=== PATIENT | female | born 1960 | race Caucasian/White ===

== ENCOUNTER 2016-10-19 14:42 | Emergency (ER) | payer OTHER ==
[~2016-10-19] VITALS: Ht 152.4 cm; Wt 86.8 kg
[~2016-10-19 14:42] MED LIST: ACET-2123 PO; AMIT10TA6 PO; BACL10TA PO; CLOT15C TP; DICL2100G TP; GLIP10 PO; HYDR25TA PO; HYDR25TA84 PO; KETO5DRO3 OU; LINA5TAB PO; LOSA50TA37 PO; MECL12.585 PO; MELO-273 PO; METF500T4 PO; METO50 PO; METO5TAB95 PO; NIZO215C TP; OMEP20 PO; PRAV20TA4 PO; PSYL660P17 PO; RANI150T7 PO; SUMA25TA9 PO
[2016-10-19 15:22] LABS: GLUCOSE,POINT OF CARE 129 MG/DL (70-110)
[2016-10-19 16:04] LABS: BASOPHILS # (AUTO) 0.06 K/uL (0.00-0.20); BASOPHILS % (AUTO) 0.6 % (0.0-2.0); EOSINOPHILS # (AUTO) 0.18 K/uL (0.00-0.70); EOSINOPHILS % (AUTO) 1.99 % (1.0-6.0); HEMATOCRIT 39.5 % (36-46); HEMOGLOBIN 13.4 g/dL (12.0-16.0); LYMPHOCYTES # (AUTO) 3.7 K/uL (1.0-4.8); LYMPHOCYTES % (AUTO) 39.8 % (22.0-44.0); MEAN CORPUSCULAR HEMOGLOBIN 30.4 pg (26.0-34.0); MEAN CORPUSCULAR HGB CONC 33.9 G/dL (31.0-37.0); MEAN CORPUSCULAR VOLUME 90 fL (80-100); MONOCYTES # (AUTO) 0.4 K/uL (0.1-1.0); MONOCYTES % (AUTO) 4.6 % (2.0-9.0); NEUTROPHILS # (AUTO) 4.9 K/uL (1.8-7.7); PLATELET COUNT (AUTO) 305 K/uL (150-450); RED BLOOD CELL COUNT(AUTO) 4.41 MIL/uL (4.00-5.20); RED CELL DISTRIBUTION WIDTH 13.7 % (11.5-14.5); WHITE BLOOD COUNT (AUTO) 9.3 K/uL (4.5-11.0)
[2016-10-19 16:15] LABS: CALCIUM, TOTAL 8.5 mg/dL (8.8-10.5); CREATININE 1.01 mg/dL (0.60-1.30); POTASSIUM 4.2 mmol/L (3.5-5.1)
[2016-10-19 16:20] LABS: ALBUMIN 3.9 g/dL (3.4-5.0); BILIRUBIN,TOTAL 0.2 mg/dL (0.1-1.0); TOTAL PROTEIN, SERUM 7.7 g/dL (6.4-8.2)
[2016-10-19 16:30] LABS: PROTHROMBIN TIME 10.4 SEC (9.4-11.6)
[2016-10-19] MEDS ORDERED: METOCLOPRAMIDE HCL 5 MG/ML 2 ML VIAL IVP ONE (16:30)
[2016-10-19] MEDS ORDERED: DiphenhydrAMINE HCL 50 MG/ML VIAL IVP ONE (16:30)
[2016-10-19] MEDS ORDERED: HYDR25TA84 PO (16:31)
[2016-10-19] MEDS ORDERED: TOPI100 PO (16:31)
[2016-10-19] MEDS ORDERED: ALBU8HFA4 IH (16:31)
[2016-10-19] MEDS ORDERED: CYAN250014 SL (16:31)
[2016-10-19] MEDS ORDERED: THIA100 PO (16:31)
[2016-10-19] MEDS ORDERED: VARE1TAB22 PO (16:31)
[2016-10-19] MEDS ORDERED: LINA5TAB PO (16:31)
[2016-10-19] MEDS ORDERED: PYRI100T2 PO (16:31)
[2016-10-19] MEDS ORDERED: GABA-531 PO (16:31)
[2016-10-19] MEDS ORDERED: FOLI1 PO (16:31)
[2016-10-19 19:44] LABS: APPEARANCE,URINE CLEAR (CLEAR); GLUCOSE, URINE (UA) NEGATIVE (NEGATIVE); KETONES,URINE NEGATIVE (NEGATIVE); LEUKOCYTE ESTERASE ,URINE NEGATIVE (NEGATIVE); OCCULT BLOOD,URINE NEGATIVE (NEGATIVE); PH,URINE 5.5 (5.0-8.0); PROTEIN,URINE NEGATIVE (NEGATIVE)
[2016-10-19 19:53] LABS: ADD UA MICROSCOPIC NO
[2016-10-19 20:24] VITALS: BP 131/69
== END 2016-10-19 20:42 | disposition home or self-care (01) ==
LOC: EMS 14:44
DX: I51.7 Cardiomegaly (principal); R07.9 Chest pain, unspecified; R06.00 Dyspnea, unspecified; R09.89 Other specified symptoms and signs involving the circulatory and respiratory systems; E11.22 Type 2 diabetes mellitus with diabetic chronic kidney disease; I12.9 Hypertensive chronic kidney disease with stage 1 through stage 4 chronic kidney disease, or unspecified chronic kidney disease; N18.9 Chronic kidney disease, unspecified; F17.210 Nicotine dependence, cigarettes, uncomplicated; Z79.899 Other long term (current) drug therapy; Z88.8 Allergy status to other drugs, medicaments and biological substances
CPT/HCPCS: 36415; 71010; 78582; 80053; 81003; 82962; 83880; 84484; 85025; 85379; 85610; 85730; 93005; 96374; 96375; 99285; J1200; J2765